=== PATIENT | male | born 1925 | race Caucasian/White ===

== ENCOUNTER 2016-11-12 12:34 | Emergency (ER) | payer MEDICARE, BC ==
--- NOTE | 2016-11-12 13:03 | EDM.PDOC ---
ED HPI GENERAL MEDICAL PROBLEM - General Chief Complaint: ENT Problem Stated Complaint: NOSE BLEED Time Seen by Provider: 11/12/16 12:34 Source of Information: Reports: Patient History Limitations: Reports: No Limitations - History of Present Illness INITIAL COMMENTS - FREE TEXT/NARRATIVE: 89 y.o.w.m came to [facility] with a right sided nose bleed, which subsided [employer]. Pt does not take ASA or coumadin, denies any other acute medical issues.. Onset: Today Onset Date: 11/12/16 Onset Time: 07:00 Duration: Resolved Prior to Arrival Location: Reports: Face Quality: Reports: Other (nose bleed, resolved [employer]) - Related Data Allergies Allergy/AdvReac Type Severity Reaction Status Date / Time celecoxib [From Celebrex] AdvReac Severe Anxiety Verified 01/15/14 10:09 Home Meds: Home Meds Aspirin [Low Dose Aspirin EC] 81 mg PO DAILY 01/14/14 [History] Betamethasone/Clotrimazole [Lotrisone] 1 applic TOP DAILY PRN 01/14/14 [History] Citalopram Hydrobromide [Citalopram HBr] 20 mg PO DAILY 01/14/14 [History] Clotrimazole/Betamethasone Dip [Lotrisone Cream] 1 applic TOP DAILY PRN [History] Metoprolol Tartrate [Lopressor] 50 mg PO BID 01/14/14 [History] Olmesartan [Benicar] 40 mg PO DAILY 01/14/14 [History] Sildenafil [Viagra] 50 mg PO BEDTIME PRN 01/14/14 [History] Simvastatin [Zocor] 20 mg PO BEDTIME 01/14/14 [History] metFORMIN HCl [Metformin HCl] 500 mg PO BID 01/14/14 [History] traMADol HCl [Tramadol HCl] 50 mg PO Q6HR PRN 01/14/14 [History] Oxymetazoline [Nasal Decongestant] 15 ml GIOVANNA ONETIME PRN #1 bottle 11/12/16 [Rx] Past Medical History HEENT History: Reports: Cataract, Epistaxis, Impaired Vision Cardiovascular History: Reports: High Cholesterol, Hypertension Musculoskeletal History: Reports: Arthritis Endocrine/Metabolic History: Reports: Other (See Below) Other Endocrine/Metabolic History: borderline diabetic - Past Surgical History HEENT Surgical History: Reports: Other (See Below) GI Surgical History: Reports: Cholecystectomy, Hernia, Inguinal, Hernia Repair/ Other Musculoskeletal Surgical History: Reports: Carpal Tunnel, Other (See Below) Social & Family History - Tobacco Use Smoking Status *Q: Former Smoker - Alcohol Use Days Per Week of Alcohol Use: 0 - Recreational Drug Use Recreational Drug Use: No ED ROS ENT - Review of Systems Review Of Systems: See Below Constitutional: Reports: No Symptoms HEENT: Reports: No Symptoms, Nosebleed (resolved [employer]) Respiratory: Reports: No Symptoms Cardiovascular: Reports: No Symptoms Endocrine: Reports: No Symptoms GI/Abdominal: Reports: No Symptoms : Reports: No Symptoms Musculoskeletal: Reports: No Symptoms Skin: Reports: No Symptoms Neurological: Reports: No Symptoms Psychiatric: Reports: No Symptoms Hematologic/Lymphatic: Reports: No Symptoms Immunologic: Reports: No Symptoms ED EXAM, ENT - Physical Exam Exam: See Below Exam Limited By: No Limitations General Appearance: Alert, WD/WN, No Apparent Distress Eye Exam: Bilateral Eye: Normal Inspection Ears: Normal External Exam, Normal Canal Nose: Normal Inspection, Normal Mucousa, No Blood Mouth/Throat: Normal Inspection, Normal Gums, Normal Lips Head: Atraumatic, Normocephalic Neck: Normal Inspection, Supple, Non-Tender, Full Range of Motion Respiratory/Chest: No Respiratory Distress, Lungs Clear, Normal Breath Sounds Cardiovascular: Normal Peripheral Pulses, Regular Rate, Rhythm, No Edema, No Gallop GI/Abdominal: Normal Bowel Sounds, Soft, Non-Tender, No Organomegaly (Male) Exam: Deferred Rectal (Males) Exam: Deferred Back: Normal Inspection, Full Range of Motion Extremities: Normal Inspection, Normal Range of Motion, Non-Tender Neurological: Alert, Oriented, CN II-XII Intact, Normal Cognition, Normal Gait Psychiatric: Normal Affect, Normal Mood Skin: Warm, Dry, Intact, Normal Color, No Rash Lymphatic: No Adenopathy Course - Vital Signs Text/Narrative:: 89 y.o.w.m came to [facility] with a right sided nose bleed, which subsided [employer]. Pt does not take ASA or coumadin, denies any other acute medical issues PE: Nl physical Impression: R ant epistaxis, resolved [employer] Plan: D/C with instructions Departure - Departure Time of Disposition: 12:59 Disposition: Home, Self-Care 01 Condition: Good Clinical Impression: Nasal bleeding Hypertension Qualifiers: Hypertension type: essential hypertension Qualified Code(s): I10 - Essential ( primary) hypertension - Discharge Information Prescriptions: Oxymetazoline [Nasal Decongestant] 15 ml GIOVANNA ONETIME PRN #1 bottle PRN Reason: please nasal spray as needed Instructions: Nosebleed Referrals: Sherman Sanchez MD [Primary Care Provider] - Forms: ED Department Discharge Additional Instructions: please apply ice to forehead and apply afrin nasal spray to r nostril should bleeding reoccur, if those measures do not help, please come back to the ed.
[2016-11-12 14:32] VITALS: BP 151/82
== END 2016-11-12 13:08 | disposition home or self-care (01) ==
LOC: FB.ED 12:34
DX: R04.0 Epistaxis (principal); I10 Essential (primary) hypertension; E78.00 Pure hypercholesterolemia, unspecified; M19.90 Unspecified osteoarthritis, unspecified site; Z79.82 Long term (current) use of aspirin; Z79.84 Long term (current) use of oral hypoglycemic drugs; Z87.891 Personal history of nicotine dependence
CPT/HCPCS: 99282; 99283